=== PATIENT | female | born 1960 | race Two or more races ===

== ENCOUNTER 2018-01-08 07:50 | Outpatient (CLI) | payer OTHER ==
[~2018-01-08 07:50] MED LIST: NO HOME MEDS
[2018-01-08 08:33] LABS: BASOPHILS % (AUTO) 0.7 % (0-1); EOSINOPHILS # (AUTO) 0.2 X10'3 (0-0.9); EOSINOPHILS % (AUTO) 2.9 % (0-6); HEMATOCRIT 36.9 % (35.0-45.0); HEMOGLOBIN 12.4 g/dl (12.0-16.0); LYMPHOCYTES # (AUTO) 1.9 X10'3 (1.1-4.8); LYMPHOCYTES % (AUTO) 33.1 % (21-51); MEAN CORPUSCULAR HEMOGLOBIN 27.8 PG (27.0-31.0); MEAN CORPUSCULAR HGB CONC 33.6 % (33.0-36.5); MEAN CORPUSCULAR VOLUME 82.8 FL (78-98); MEAN PLATELET VOLUME 7.9 FL (7.4-10.4); MONOCYTES # (AUTO) 0.3 X10'3 (0-0.9); MONOCYTES % (AUTO) 5.4 % (2-12); NEUTROPHILS # (AUTO) 3.3 X10'3 (1.8-7.7); NEUTROPHILS % (AUTO) 57.9 % (42-75); PLATELET COUNT 387 X10'3 (140-440); RED BLOOD COUNT 4.45 X10'6 (4.20-5.60); RED CELL DISTRIBUTION WIDTH 14.2 % (11.5-14.5); WHITE BLOOD COUNT 5.7 X10'3 (4.5-11.0)
[2018-01-08 08:45] LABS: CLARITY,URINE CLEAR (Clear); COLOR,URINE YELLOW (Yellow); GLUCOSE, URINE NEGATIVE (Neg); KETONES,URINE NEGATIVE (Neg); LEUKOCYTE ESTERASE ,URINE NEGATIVE (Neg); NITRITES, URINE NEGATIVE (Neg); OCCULT BLOOD,URINE NEGATIVE (Neg); PROTEIN,URINE NEGATIVE (Neg); UROBILINOGEN,URINE 0.2 E.U/dL (0.2-1.0)
[2018-01-08 08:52] LABS: UA COLLECTION TYPE CLN CATCH MIDSTREAM
[2018-01-08 09:07] LABS: ALANINE AMINOTRANSFERASE 35 U/L (12-78); ALBUMIN 3.6 G/DL (3.4-5.0); ALBUMIN/GLOBULIN RATIO 0.9 (1.1-1.5); ALKALINE PHOSPHATASE 107 IU/L (46-116); ANION GAP 10 (8-16); ASPARTATE AMINO TRANSFERASE 18 U/L (10-37); BILIRUBIN,TOTAL 0.5 MG/DL (0.1-1.0); BLOOD UREA NITROGEN 17 MG/DL (7-18); BUN/CREATININE RATIO 23.9 (6.6-38.0); CALCIUM 9.2 MG/DL (8.5-10.1); CHLORIDE 106 MMOL/L (99-107); CHOL/HDL RATIO 3.6 (0.00-4.99); CHOLESTEROL 246 MG/DL (0-200); CREATININE 0.71 MG/DL (0.40-0.90); GLUCOSE 99 MG/DL (70-104); HDL CHOLESTEROL 68 MG/DL (35-60); LDL CHOLESTEROL 152 MG/DL (50-100); POTASSIUM 3.9 MMOL/L (3.5-5.1); SODIUM 144 MMOL/L (135-145); TOTAL CARBON DIOXIDE 28.3 MMOL/L (24-32); TOTAL PROTEIN 7.4 G/DL (6.4-8.2); TRIGLYCERIDES 125 MG/DL (20-135); eGFR 85 ML/MIN
== END 2018-01-08 23:59 | disposition home or self-care (01) ==
LOC: LAB 07:50
PROVIDERS: ATTEND Family Medicine
DX: Z00.01 Encounter for general adult medical examination with abnormal findings (principal)
CPT/HCPCS: 36415; 80053; 80061; 81003; 84439; 84443; 85025

== ENCOUNTER 2018-12-24 07:51 | Outpatient (CLI) | payer OTHER ==
[2018-12-24 08:41] LABS: CLARITY,URINE CLEAR (Clear); COLOR,URINE YELLOW (Yellow); GLUCOSE, URINE NEGATIVE (Neg); KETONES,URINE NEGATIVE (Neg); LEUKOCYTE ESTERASE ,URINE NEGATIVE (Neg); NITRITES, URINE NEGATIVE (Neg); OCCULT BLOOD,URINE NEGATIVE (Neg); PROTEIN,URINE NEGATIVE (Neg); UROBILINOGEN,URINE 0.2 E.U/dL (0.2-1.0)
[2018-12-24 08:42] LABS: BASOPHILS # (AUTO) 0.1 X10'3 (0-0.2); BASOPHILS % (AUTO) 0.9 % (0-1); EOSINOPHILS # (AUTO) 0.1 X10'3 (0-0.9); EOSINOPHILS % (AUTO) 2.2 % (0-6); HEMATOCRIT 35.9 % (35.0-45.0); HEMOGLOBIN 12.2 g/dl (12.0-16.0); LYMPHOCYTES # (AUTO) 2.1 X10'3 (1.1-4.8); LYMPHOCYTES % (AUTO) 36.7 % (21-51); MEAN CORPUSCULAR HEMOGLOBIN 28.1 PG (27.0-31.0); MEAN CORPUSCULAR VOLUME 82.6 FL (78-98); MEAN PLATELET VOLUME 7.9 FL (7.4-10.4); MONOCYTES # (AUTO) 0.3 X10'3 (0-0.9); MONOCYTES % (AUTO) 5.6 % (2-12); NEUTROPHILS # (AUTO) 3.1 X10'3 (1.8-7.7); NEUTROPHILS % (AUTO) 54.6 % (42-75); PLATELET COUNT 358 X10'3 (140-440); RED BLOOD COUNT 4.34 X10'6 (4.20-5.60); WHITE BLOOD COUNT 5.7 X10'3 (4.5-11.0)
[2018-12-24 08:53] LABS: UA COLLECTION TYPE CLN CATCH MIDSTREAM
[2018-12-24 09:05] LABS: ALANINE AMINOTRANSFERASE 33 U/L (12-78); ALBUMIN 3.7 G/DL (3.4-5.0); ALBUMIN/GLOBULIN RATIO 0.9 (1.1-1.5); ALKALINE PHOSPHATASE 115 IU/L (46-116); ANION GAP 8 (8-16); ASPARTATE AMINO TRANSFERASE 12 U/L (10-37); BILIRUBIN,TOTAL 0.4 MG/DL (0.1-1.0); BLOOD UREA NITROGEN 15 MG/DL (7-18); BUN/CREATININE RATIO 21.1 (6.6-38.0); CALCIUM 8.6 MG/DL (8.5-10.1); CHLORIDE 107 MMOL/L (99-107); CHOL/HDL RATIO 3.4 (0.00-4.99); CHOLESTEROL 213 MG/DL (0-200); CREATININE 0.71 MG/DL (0.40-0.90); GLUCOSE 102 MG/DL (70-104); HDL CHOLESTEROL 62 MG/DL (35-60); LDL CHOLESTEROL 118 MG/DL (50-100); POTASSIUM 3.9 MMOL/L (3.5-5.1); SODIUM 144 MMOL/L (135-145); TOTAL PROTEIN 7.7 G/DL (6.4-8.2); TRIGLYCERIDES 147 MG/DL (20-135); eGFR 85 ML/MIN
== END 2018-12-24 23:59 | disposition home or self-care (01) ==
LOC: LAB 07:51
PROVIDERS: ATTEND Family Medicine
DX: Z00.00 Encounter for general adult medical examination without abnormal findings (principal)
CPT/HCPCS: 36415; 80053; 80061; 81003; 84439; 84443; 85025

== ENCOUNTER → 2019-01-15 | Outpatient (CLI) | payer OTHER | END | disposition home or self-care (01) | LOC: RAD 08:41 | PROVIDERS: ATTEND Family Medicine | DX: M94.262 Chondromalacia, left knee (principal); M25.462 Effusion, left knee | CPT/HCPCS: 73721 ==

== ENCOUNTER → 2019-11-05 | Outpatient (CLI) | payer BC ==
[2019-11-05 07:09] LABS: CLARITY,URINE CLEAR (Clear); COLOR,URINE YELLOW (Yellow); GLUCOSE, URINE NEGATIVE (Neg); KETONES,URINE NEGATIVE (Neg); LEUKOCYTE ESTERASE ,URINE SMALL (Neg); NITRITES, URINE NEGATIVE (Neg); OCCULT BLOOD,URINE NEGATIVE (Neg); PH,URINE 5.5 (4.8-8.0); PROTEIN,URINE NEGATIVE (Neg); UROBILINOGEN,URINE 0.2 E.U/dL (0.2-1.0)
[2019-11-05 07:11] LABS: BASOPHILS # (AUTO) 0.1 X10'3 (0-0.2); BASOPHILS % (AUTO) 0.8 % (0-1); EOSINOPHILS # (AUTO) 0.2 X10'3 (0-0.9); EOSINOPHILS % (AUTO) 2.5 % (0-6); HEMATOCRIT 35.1 % (35.0-45.0); HEMOGLOBIN 11.8 g/dl (12.0-16.0); LYMPHOCYTES # (AUTO) 2.3 X10'3 (1.1-4.8); LYMPHOCYTES % (AUTO) 34.4 % (21-51); MEAN CORPUSCULAR HEMOGLOBIN 27.8 PG (27.0-31.0); MEAN CORPUSCULAR HGB CONC 33.8 g/dL (33.0-36.5); MEAN CORPUSCULAR VOLUME 82.2 FL (78-98); MEAN PLATELET VOLUME 8.2 FL (7.4-10.4); MONOCYTES # (AUTO) 0.4 X10'3 (0-0.9); MONOCYTES % (AUTO) 6.1 % (2-12); NEUTROPHILS # (AUTO) 3.7 X10'3 (1.8-7.7); NEUTROPHILS % (AUTO) 56.2 % (42-75); PLATELET COUNT 345 X10'3 (140-440); RED BLOOD COUNT 4.27 X10'6 (4.20-5.60); RED CELL DISTRIBUTION WIDTH 13.9 % (11.5-14.5); UA COLLECTION TYPE CLN CATCH MIDSTREAM; WHITE BLOOD COUNT 6.6 X10'3 (4.5-11.0)
[2019-11-05 07:17] LABS: BACTERIA,URINE FEW /HPF (Neg); MUCUS STRANDS NONE SEEN /LPF (Neg); RBC,URINE NONE SEEN /HPF (0-2); SQUAMOUS EPITHELIAL CELL,UR FEW /LPF (FEW); WBC,URINE 0-4 /HPF (0-4)
[2019-11-05 08:11] LABS: ALANINE AMINOTRANSFERASE 23 U/L (12-78); ALBUMIN 3.7 G/DL (3.4-5.0); ALKALINE PHOSPHATASE 104 IU/L (46-116); ANION GAP 10 (8-16); ASPARTATE AMINO TRANSFERASE 12 U/L (10-37); BILIRUBIN,TOTAL 0.3 MG/DL (0.1-1.0); BLOOD UREA NITROGEN 21 MG/DL (7-18); BUN/CREATININE RATIO 28.8 (6.6-38.0); CALCIUM 8.7 MG/DL (8.5-10.1); CHLORIDE 108 MMOL/L (99-107); CHOL/HDL RATIO 3.3 (0.00-4.99); CHOLESTEROL 225 MG/DL (0-200); CREATININE 0.73 MG/DL (0.40-0.90); GLUCOSE 105 MG/DL (70-104); HDL CHOLESTEROL 69 MG/DL (35-60); LDL CHOLESTEROL 136 MG/DL (50-100); POTASSIUM 3.9 MMOL/L (3.5-5.1); SODIUM 143 MMOL/L (135-145); TOTAL PROTEIN 7.4 G/DL (6.4-8.2); TRIGLYCERIDES 81 MG/DL (20-135); eGFR 82 ML/MIN
== END | disposition home or self-care (01) ==
LOC: LAB 06:35
PROVIDERS: ATTEND Family Medicine
DX: Z00.00 Encounter for general adult medical examination without abnormal findings (principal)
CPT/HCPCS: 36415; 80053; 80061; 81001; 84439; 84443; 85025; 87088

== ENCOUNTER 2020-11-14 07:24 | Outpatient (CLI) | payer BC ==
[2020-11-14 08:06] LABS: BASOPHILS % (AUTO) 0.8 % (0-1); EOSINOPHILS # (AUTO) 0.1 X10'3 (0-0.9); HEMATOCRIT 35.5 % (35.0-45.0); HEMOGLOBIN 11.9 g/dl (12.0-16.0); LYMPHOCYTES # (AUTO) 2.2 X10'3 (1.1-4.8); LYMPHOCYTES % (AUTO) 38.3 % (21-51); MEAN CORPUSCULAR HEMOGLOBIN 27.8 PG (27.0-31.0); MEAN CORPUSCULAR HGB CONC 33.6 g/dL (33.0-36.5); MEAN CORPUSCULAR VOLUME 82.7 FL (78-98); MEAN PLATELET VOLUME 7.8 FL (7.4-10.4); MONOCYTES # (AUTO) 0.4 X10'3 (0-0.9); MONOCYTES % (AUTO) 6.3 % (2-12); NEUTROPHILS # (AUTO) 3.1 X10'3 (1.8-7.7); NEUTROPHILS % (AUTO) 52.6 % (42-75); PLATELET COUNT 382 X10'3 (140-440); RED BLOOD COUNT 4.29 X10'6 (4.20-5.60); RED CELL DISTRIBUTION WIDTH 13.9 % (11.5-14.5); WHITE BLOOD COUNT 5.9 X10'3 (4.5-11.0)
[2020-11-14 08:30] LABS: ALANINE AMINOTRANSFERASE 21 U/L (12-78); ALBUMIN 3.7 G/DL (3.4-5.0); ALKALINE PHOSPHATASE 112 IU/L (46-116); ANION GAP 8 (8-16); ASPARTATE AMINO TRANSFERASE 12 U/L (10-37); BILIRUBIN,TOTAL 0.4 MG/DL (0.1-1.0); BLOOD UREA NITROGEN 14 MG/DL (7-18); BUN/CREATININE RATIO 17.1 (6.6-38.0); CALCIUM 8.8 MG/DL (8.5-10.1); CHLORIDE 108 MMOL/L (99-107); CHOL/HDL RATIO 3.7 (0.00-4.99); CHOLESTEROL 239 MG/DL (0-200); CREATININE 0.82 MG/DL (0.40-0.90); GLUCOSE 108 MG/DL (70-104); HDL CHOLESTEROL 64 MG/DL (35-60); LDL CHOLESTEROL 127 MG/DL (50-100); SODIUM 144 MMOL/L (135-145); TOTAL CARBON DIOXIDE 27.6 MMOL/L (24-32); TOTAL PROTEIN 7.3 G/DL (6.4-8.2); TRIGLYCERIDES 190 MG/DL (20-135); eGFR 71 ML/MIN
[2020-11-14 09:20] LABS: CLARITY,URINE CLEAR (Clear); COLOR,URINE YELLOW (Yellow); UA COLLECTION TYPE CLN CATCH MIDSTREAM
[2020-11-14 09:21] LABS: PH,URINE 6.5 (4.8-8.0)
[2020-11-14 09:24] LABS: GLUCOSE, URINE NEGATIVE (Neg); KETONES,URINE NEGATIVE (Neg); OCCULT BLOOD,URINE NEGATIVE (Neg); PROTEIN,URINE NEGATIVE (Neg)
[2020-11-14 09:25] LABS: LEUKOCYTE ESTERASE ,URINE NEGATIVE (Neg); NITRITES, URINE NEGATIVE (Neg); UROBILINOGEN,URINE 0.2 E.U/dL (0.2-1.0)
== END 2020-11-14 23:59 | disposition home or self-care (01) ==
LOC: LAB 07:24
PROVIDERS: ATTEND Family Medicine
DX: Z00.01 Encounter for general adult medical examination with abnormal findings (principal)
CPT/HCPCS: 36415; 80053; 80061; 81003; 84439; 84443; 85025

== ENCOUNTER 2022-02-05 06:45 | Outpatient (CLI) | payer BC ==
[2022-02-05 07:15] LABS: CLARITY,URINE CLEAR (Clear); COLOR,URINE YELLOW (Yellow); GLUCOSE, URINE NEGATIVE (Neg); KETONES,URINE NEGATIVE (Neg); LEUKOCYTE ESTERASE ,URINE NEGATIVE (Neg); NITRITES, URINE NEGATIVE (Neg); OCCULT BLOOD,URINE NEGATIVE (Neg); PROTEIN,URINE NEGATIVE (Neg); UROBILINOGEN,URINE 0.2 E.U/dL (0.2-1.0)
[2022-02-05 07:16] LABS: BASOPHILS % (AUTO) 0.9 % (0-1); EOSINOPHILS # (AUTO) 0.1 X10'3 (0-0.9); EOSINOPHILS % (AUTO) 3.1 % (0-6); HEMATOCRIT 36.2 % (35.0-45.0); HEMOGLOBIN 12.2 g/dl (12.0-16.0); LYMPHOCYTES % (AUTO) 40.5 % (21-51); MEAN CORPUSCULAR HEMOGLOBIN 27.9 PG (27.0-31.0); MEAN CORPUSCULAR HGB CONC 33.8 g/dL (33.0-36.5); MEAN CORPUSCULAR VOLUME 82.5 FL (78-98); MEAN PLATELET VOLUME 7.8 FL (7.4-10.4); MONOCYTES # (AUTO) 0.4 X10'3 (0-0.9); MONOCYTES % (AUTO) 7.4 % (2-12); NEUTROPHILS # (AUTO) 2.4 X10'3 (1.8-7.7); NEUTROPHILS % (AUTO) 48.1 % (42-75); PLATELET COUNT 353 X10'3 (140-440); RED BLOOD COUNT 4.38 X10'6 (4.20-5.60); RED CELL DISTRIBUTION WIDTH 13.9 % (11.5-14.5); WHITE BLOOD COUNT 4.9 X10'3 (4.5-11.0)
[2022-02-05 07:20] LABS: UA COLLECTION TYPE CLN CATCH MIDSTREAM
[2022-02-05 07:45] LABS: ALANINE AMINOTRANSFERASE 27 U/L (12-78); ALBUMIN 3.6 G/DL (3.4-5.0); ALBUMIN/GLOBULIN RATIO 0.9 (1.1-1.5); ALKALINE PHOSPHATASE 97 IU/L (46-116); ANION GAP 10 (8-16); ASPARTATE AMINO TRANSFERASE 15 U/L (10-37); BILIRUBIN,TOTAL 0.4 MG/DL (0.1-1.0); BLOOD UREA NITROGEN 18 MG/DL (7-18); BUN/CREATININE RATIO 26.9 (6.6-38.0); CALCIUM 9.1 MG/DL (8.5-10.1); CHLORIDE 106 MMOL/L (99-107); CHOLESTEROL 242 MG/DL (0-200); CREATININE 0.67 MG/DL (0.40-0.90); GLUCOSE 112 MG/DL (70-104); HDL CHOLESTEROL 80 MG/DL (35-60); LDL CHOLESTEROL 132 MG/DL (50-100); POTASSIUM 3.9 MMOL/L (3.5-5.1); SODIUM 142 MMOL/L (135-145); TOTAL CARBON DIOXIDE 26.3 MMOL/L (24-32); TOTAL PROTEIN 7.4 G/DL (6.4-8.2); TRIGLYCERIDES 106 MG/DL (20-135); eGFR 90 ML/MIN
== END 2022-02-05 23:59 | disposition home or self-care (01) ==
LOC: LAB 06:45
PROVIDERS: ATTEND Family Medicine
DX: Z00.00 Encounter for general adult medical examination without abnormal findings (principal)
CPT/HCPCS: 36415; 80053; 80061; 81003; 84439; 84443; 85025

== ENCOUNTER 2022-07-26 07:25 | Outpatient (CLI) | payer BC ==
[2022-07-26 08:02] LABS: CLARITY,URINE CLEAR (Clear); COLOR,URINE YELLOW (Yellow); GLUCOSE, URINE NEGATIVE (Neg); KETONES,URINE NEGATIVE (Neg); LEUKOCYTE ESTERASE ,URINE TRACE (Neg); NITRITES, URINE NEGATIVE (Neg); OCCULT BLOOD,URINE NEGATIVE (Neg); PH,URINE 6.5 (4.8-8.0); PROTEIN,URINE NEGATIVE (Neg); UROBILINOGEN,URINE 0.2 E.U/dL (0.2-1.0)
[2022-07-26 08:05] LABS: UA COLLECTION TYPE VOIDED
[2022-07-26 08:06] LABS: BASOPHILS % (AUTO) 0.7 % (0-1); EOSINOPHILS # (AUTO) 0.1 X10'3 (0-0.9); HEMATOCRIT 37.4 % (35.0-45.0); HEMOGLOBIN 12.6 g/dl (12.0-16.0); LYMPHOCYTES # (AUTO) 1.9 X10'3 (1.1-4.8); LYMPHOCYTES % (AUTO) 38.3 % (21-51); MEAN CORPUSCULAR HEMOGLOBIN 27.8 PG (27.0-31.0); MEAN CORPUSCULAR HGB CONC 33.6 g/dL (33.0-36.5); MEAN PLATELET VOLUME 7.8 FL (7.4-10.4); MONOCYTES # (AUTO) 0.3 X10'3 (0-0.9); MONOCYTES % (AUTO) 5.9 % (2-12); NEUTROPHILS # (AUTO) 2.6 X10'3 (1.8-7.7); NEUTROPHILS % (AUTO) 53.1 % (42-75); PLATELET COUNT 346 X10'3 (140-440); RED BLOOD COUNT 4.51 X10'6 (4.20-5.60); WHITE BLOOD COUNT 4.9 X10'3 (4.5-11.0)
[2022-07-26 08:09] LABS: BACTERIA,URINE FEW /HPF (Neg); MUCUS STRANDS NONE SEEN /LPF (Neg); RBC,URINE NONE SEEN /HPF (0-2); SQUAMOUS EPITHELIAL CELL,UR FEW /LPF (FEW); WBC,URINE 0-4 /HPF (0-4)
[2022-07-26 09:08] LABS: ALANINE AMINOTRANSFERASE 26 U/L (12-78); ALBUMIN 3.8 G/DL (3.4-5.0); ALBUMIN/GLOBULIN RATIO 1.1 (1.1-1.5); ALKALINE PHOSPHATASE 102 IU/L (46-116); ANION GAP 7 (8-16); ASPARTATE AMINO TRANSFERASE 15 U/L (10-37); BILIRUBIN,TOTAL 0.5 MG/DL (0.1-1.0); BLOOD UREA NITROGEN 19 MG/DL (7-18); BUN/CREATININE RATIO 27.1 (10.0-20.0); CALCIUM 9.2 MG/DL (8.5-10.1); CHLORIDE 107 MMOL/L (99-107); CHOLESTEROL 246 MG/DL (0-200); GLUCOSE 96 MG/DL (70-104); HDL CHOLESTEROL 83 MG/DL (35-60); LDL CHOLESTEROL 129 MG/DL (50-100); POTASSIUM 3.7 MMOL/L (3.5-5.1); SODIUM 143 MMOL/L (135-145); TOTAL CARBON DIOXIDE 28.7 MMOL/L (24-32); TOTAL PROTEIN 7.2 G/DL (6.4-8.2); TRIGLYCERIDES 66 MG/DL (20-135); eGFR 85 ML/MIN
== END 2022-07-26 23:59 | disposition home or self-care (01) ==
LOC: LAB 07:25
PROVIDERS: ATTEND Family Medicine
DX: Z00.00 Encounter for general adult medical examination without abnormal findings (principal)
CPT/HCPCS: 36415; 80053; 80061; 81001; 84439; 84443; 85025

== ENCOUNTER 2022-10-28 09:22 | Emergency (ER) | payer BC ==
[~2022-10-28] VITALS: Ht 154.9 cm; Wt 67.4 kg
[2022-10-28 09:24] VITALS: BP 144/97; PULSE 65; RESP 16; TEMP 98.8; O2SAT 97
== END 2022-10-28 13:31 | disposition left against medical advice (07) ==
LOC: ER 09:23
DX: J02.9 Acute pharyngitis, unspecified (principal); Z53.21 Procedure and treatment not carried out due to patient leaving prior to being seen by health care provider
CPT/HCPCS: 99281

== ENCOUNTER 2024-08-06 07:20 | Outpatient (CLI) | payer BC ==
[2024-08-06 07:53] LABS: BASOPHILS % (AUTO) 0.7 % (0-1); EOSINOPHILS # (AUTO) 0.1 X10'3 (0-0.9); EOSINOPHILS % (AUTO) 2.1 % (0-6); HEMATOCRIT 35.3 % (35.0-45.0); HEMOGLOBIN 11.9 g/dl (12.0-16.0); LYMPHOCYTES % (AUTO) 40.2 % (21-51); MEAN CORPUSCULAR HEMOGLOBIN 27.5 PG (27.0-31.0); MEAN CORPUSCULAR HGB CONC 33.8 g/dL (33.0-36.5); MEAN CORPUSCULAR VOLUME 81.4 FL (78-98); MEAN PLATELET VOLUME 7.9 FL (7.4-10.4); MONOCYTES # (AUTO) 0.3 X10'3 (0-0.9); MONOCYTES % (AUTO) 6.2 % (2-12); NEUTROPHILS # (AUTO) 2.5 X10'3 (1.8-7.7); NEUTROPHILS % (AUTO) 50.8 % (42-75); PLATELET COUNT 325 X10'3 (140-440); RED BLOOD COUNT 4.33 X10'6 (4.20-5.60); RED CELL DISTRIBUTION WIDTH 14.2 % (11.5-14.5)
[2024-08-06 08:42] LABS: HEMOGLOBIN A1C 5.7 % (4.5-6.2)
[2024-08-06 09:17] LABS: ALANINE AMINOTRANSFERASE 21 U/L (12-78); ALBUMIN 3.7 G/DL (3.4-5.0); ALBUMIN/GLOBULIN RATIO 1.1 (1.1-1.5); ALKALINE PHOSPHATASE 100 IU/L (46-116); ANION GAP 9 (8-16); ASPARTATE AMINO TRANSFERASE 14 U/L (10-37); BILIRUBIN,TOTAL 0.5 MG/DL (0.1-1.0); BLOOD UREA NITROGEN 17 MG/DL (7-18); CALCIUM 8.6 MG/DL (8.5-10.1); CHLORIDE 109 MMOL/L (99-107); CHOL/HDL RATIO 3.2 (0.00-4.99); CHOLESTEROL 245 MG/DL (0-200); CREATININE 0.74 MG/DL (0.40-0.90); FREE T4 (FREE THYROXINE) 0.89 NG/DL (0.73-1.40); GLUCOSE 99 MG/DL (70-104); HDL CHOLESTEROL 77 MG/DL (35-60); LDL CHOLESTEROL 129 MG/DL (50-100); POTASSIUM 3.8 MMOL/L (3.5-5.1); SODIUM 145 MMOL/L (135-145); THYROID STIMULATING HORMONE 2.06 ulU/ml (0.34-4.50); TOTAL CARBON DIOXIDE 27.3 MMOL/L (24-32); TOTAL PROTEIN 7.2 G/DL (6.4-8.2); TRIGLYCERIDES 115 MG/DL (20-135); eGFR 79 ML/MIN
== END 2024-08-06 23:59 | disposition home or self-care (01) ==
LOC: LAB 07:20
PROVIDERS: ATTEND Nurse Practitioner
DX: I10 Essential (primary) hypertension (principal); R73.03 Prediabetes; E78.2 Mixed hyperlipidemia; R63.5 Abnormal weight gain; E03.9 Hypothyroidism, unspecified; R53.82 Chronic fatigue, unspecified; L30.9 Dermatitis, unspecified
CPT/HCPCS: 36415; 80053; 80061; 83036; 84439; 84443; 85025

== ENCOUNTER 2024-09-14 06:14 | Outpatient (CLI) | payer BC ==
[2024-09-14 08:15] LABS: CHOL/HDL RATIO 3.3 (0.00-4.99); LDL CHOLESTEROL 123 MG/DL (50-100)
== END 2024-09-14 23:59 | disposition home or self-care (01) ==
LOC: LAB 06:14
PROVIDERS: ATTEND Nurse Practitioner
DX: E78.5 Hyperlipidemia, unspecified (principal)
CPT/HCPCS: 36415; 80061

== ENCOUNTER 2024-10-06 07:36 | Outpatient (CLI) | payer BC ==
--- NOTE | 2024-10-06 18:59 | CARDIOLOGY REPORT ---
APPROVED REPORT EXAM: Comprehensive 2D, Doppler, and color-flow Echocardiogram. Patient Location: OUT-PATIENT Blood Pressure: 159/72 mmHg Heart Rate: 64 bpm Indications Chest Pain AGRONOMY MANAGER: Arline Lazo MD NO Previous ECHO 2D Dimensions LA Diam2.9 cm IVSd 0.7 (0.7-1.1cm) LVDd 4.4 cm PWd 0.9 (0.7-1.1cm) IVSs 1.1 (0.8-1.2cm) LVDs 2.5 (2.5-4.0cm) PWs 1.9 (0.8-1.2cm) LVOT Diameter 1.82 (1.8-2.4cm) LVEF(%) 74.9 (>50%) IVC 11.76 mm FS (%) 43.5 % SV 66.4 ml M-Mode Dimensions Left Atrium(MM) 2.78 (2.5-4.0cm) Aortic Root 2.80 (2.2-3.7cm) MV EPSS 0.4 (<0.5cm) Aortic Valve AoV Peak Luis Miguel. 160.2 cm/s AoV VTI 31.3 cm AO Peak GR. 10.3 mmHg AO Mean GR. 5 mmHg LVOT VTI 25.08 cm LVOT Peak Luis Miguel. 114.8 cm/s GUS (VMAX) 1.86 cm2 GUS (VTI) 2.08 cm2 Mitral Valve MV E Velocity 63.2 cm/s MV Peak Gr. 2 mmHg MV DECEL TIME 295 ms MV A Velocity 72.6 cm/s MV Mean Gr. 1 mmHg MV PHT 120 ms E/A Ratio 0.9 MVA (PHT) 1.83 cm2 MV VMean48.2 cm/sMVA VTI2.07 cm2 MV VTI31.5 cm TDI E/Medial E' 8.5 Pulmonary Valve PV Peak Velocity 122.3 cm/s PV Peak Grad. 6 mmHg Tricuspid Valve TR P. Velocity 223 cm/s RAP ESTIMATE 10 mmHg TR Peak Gr. 20 mmHg RVSP 30 mmHg LEFT VENTRICLE Normal LV size and wall thickness. Overall systolic function is hyperdynamic. LVEF is 70-75%. RIGHT VENTRICLE RV is normal size and function. ATRIA The left atrium size is normal. AORTIC VALVE Trileaflet AV appears mildly sclerotic without stenosis. Trace insufficiency. MITRAL VALVE Mild mitral annular calcification without stenosis. Trace regurgitation. TRICUSPID VALVE The tricuspid valve is normal in structure with trace regurgitation. PULMONIC VALVE Pulmonic valve is grossly normal in structure with physiologic insufficiency. GREAT VESSELS The aortic root is normal in size. The ascending aorta is normal in size. The IVC is normal in size a nd collapses >50% with inspiration. PERICARDIUM Normal pericardium. No effusion. Other Information Study Quality: Adequate Conclusion Normal LV size and wall thickness. Overall systolic function is hyperdynamic. LVEF is 70-75%. The left atrium size is normal. Trileaflet AV appears mildly sclerotic without stenosis. Trace insufficiency. Mild mitral annular calcification without stenosis. Trace regurgitation. The tricuspid valve is normal in structure with trace regurgitation. Normal pericardium. No effusion.
== END 2024-10-06 23:59 | disposition home or self-care (01) ==
LOC: CARD DIAG 07:36
PROVIDERS: ATTEND Student in an Organized Health Care Education/Training Program
DX: I34.81 Nonrheumatic mitral (valve) annulus calcification (principal); R07.9 Chest pain, unspecified
CPT/HCPCS: 93306

== ENCOUNTER 2024-10-14 06:10 | Outpatient (CLI) | payer BC ==
[2024-10-14 08:01] LABS: CHOL/HDL RATIO 2.4 (0.00-4.99); LDL CHOLESTEROL 88 MG/DL (50-100)
== END 2024-10-14 23:59 | disposition home or self-care (01) ==
LOC: LAB 06:10
PROVIDERS: ATTEND Nurse Practitioner
DX: E78.49 Other hyperlipidemia (principal)
CPT/HCPCS: 36415; 80061